=== PATIENT | male | born 1990 | race Two or more races ===

== ENCOUNTER 2018-08-15 21:53 | Emergency (ER) | payer OTHER ==
[~2018-08-15] VITALS: Ht 177.8 cm; Wt 70.3 kg
[2018-08-15 22:00] VITALS: BP 134/83
--- NOTE | 2018-08-15 22:00 | NUR ---
ED Nurse Note: BIBA FROM HOME C/O SEIZURE. PT STATES HAS ADORE OF SZ; COMPLIANT WITH MEDICATION REGIMEN. AO4. VSS. RIGHT SHOULDER DISLOCATION NOTED. PT RATES PAIN 10.
--- NOTE | 2018-08-15 22:01 | NUR ---
ED Nurse Note: IV ACCESS ESTABLISHED. BLOOD COLLECTED; SENT DOWN TO LAB. PT UNABLE TO PROVIDE URINE; REFUSES STRAIGHT CATH; ERMD NOTIFIED.
[2018-08-15] MEDS ORDERED: Morphine Sulfate 4mg/ml Inj (IV USE ONLY) IVP ONE (22:15)
[2018-08-15] MEDS ORDERED: Ketorolac 30mg Inj IV ONE (22:15)
[2018-08-15 22:25] LABS: ANION GAP 10 mmol/L (5-15); BLOOD UREA NITROGEN 17 mg/dL (7-18); CALCIUM 8.9 MG/DL (8.5-10.1); CARBON DIOXIDE 29 MMOL/L (21-32); CHLORIDE 101 MMOL/L (98-107); CREATININE 1.1 MG/DL (0.55-1.30); POTASSIUM 3.8 MMOL/L (3.5-5.1); SODIUM 140 MMOL/L (136-145)
[2018-08-15 22:29] LABS: ALANINE AMINOTRANSFERASE 37 U/L (12-78); ALBUMIN 4.5 G/DL (3.4-5.0); ALBUMIN/GLOBULIN RATIO 1.5 (1.0-2.7); ALKALINE PHOSPHATASE 47 U/L (46-116); ASPARTATE AMINO TRANSFERASE 22 U/L (15-37); BASOPHILS % (AUTO) 0.7 % (0.0-2.0); BILIRUBIN,TOTAL 0.4 MG/DL (0.2-1.0); EOSINOPHILS % (AUTO) 1.4 % (0.0-3.0); HEMATOCRIT 41.3 % (42.0-52.0); HEMOGLOBIN 14.2 G/DL (14.2-18.0); LYMPHOCYTES % (AUTO) 34.1 % (20.0-45.0); MEAN CORPUSCULAR VOLUME 82 FL (80-99); MONOCYTES % (AUTO) 7.2 % (1.0-10.0); NEUTROPHILS % (AUTO) 56.6 % (45.0-75.0); PLATELET COUNT 378 K/UL (150-450); RED BLOOD COUNT 5.01 M/UL (4.70-6.10); RED CELL DISTRIBUTION WIDTH 10.8 % (11.6-14.8)
--- NOTE | 2018-08-15 23:00 | NUR ---
ED Nurse Note: PATIENT UNABLE TO PROVIDE URINE SAMPLE. PER ERMD, URINE SAMPLE NO LONGER NEEDED.
[2018-08-15] MEDS ORDERED: Propofol 200mg/20ml IV ONE (23:03)
--- NOTE | 2018-08-15 23:20 | Emergency Room Report ---
History of Present Illness General Chief Complaint: Seizure Source: Patient Present Illness HPI 28-year-old male presents ED for evaluation. Brought in by EMS status post seizure. Had witnessed seizure at home. States he fell out of his chair. Denies hitting his head or LOC. Complaining with right shoulder pain. Throbbing, 10 out of 10, nonradiating. States he takes Keppra and Lamictal. States he's compliant with his medications. Denies alcohol or drug use. No other aggravating relieving factors. Denies any other associated symptoms Allergies: Coded Allergies: No Known Allergies (Unverified , 08/15/18) Patient History Past Medical History: none Past Surgical History: none Pertinent Family History: none Social History: Denies: smoking, alcohol use, drug use Immunizations: UTD Reviewed Nursing Documentation: PMH: Agreed; PSxH: Agreed Nursing Documentation-PMH Hx Seizures: Yes Review of Systems All Other Systems: negative except mentioned in HPI Physical Exam Vital Signs Date Time Temp Pulse Resp B/P (MAP) Pulse Ox O2 Delivery O2 Flow Rate FiO2 08/15/18 21:54 97.9 77 18 134/83 99 Room Air Sp02 EP Interpretation: reviewed, normal General Appearance: no apparent distress, alert, GCS 15, non-toxic Head: normocephalic, atraumatic Eyes: bilateral eye normal inspection, bilateral eye PERRL ENT: normal ENT inspection Neck: normal inspection Respiratory: chest non-tender, lungs clear, normal breath sounds, speaking full sentences Cardiovascular #1: regular rate, rhythm, no edema Gastrointestinal: normal inspection Rectal: deferred Genitourinary: no CVA tenderness Musculoskeletal: tender - R shoulder Neurologic: alert, oriented x3, responsive, motor strength/tone normal, sensory intact, speech normal Psychiatric: normal inspection Skin: normal inspection Lymphatic: normal inspection Procedures Splinting Splinting : Consent: Verbal Pre-Made Type: shoulder immobilizer Pre-Proc Neuro Vasc Exam: normal Post-Proc Neuro Vasc Exam: normal Patient Tolerated: Well Complications: None Joint Reduction Joint Reduction : Consent: Written Joint Reduction Site: shoulder (R) Procedural Sedation: Yes Reduction Attempts: One Pre-Procedure NV Exam: Yes Post-Procedure NV Exam: Yes Post Joint Reduction Film: joint reduced Patient Tolerated: Well Complications: None Procedural Sedation Consent: Written Pre-Sedation Assessment: Eval. Immed. Prior to Sed, Pre-proc Edu. done, Plan for Sedation Discuss Airway Assessment (Malampati): I Heart: normal Lungs: normal Abdomen: normal Extremities: normal Procedures/Plans: Closed Reduction Plan for Moderate Sedation: Propofol - 50mg ASA Score: I Start Time: 23:53 End Time: 23:55 Communication: No Apparent Limitation Mental Status: Awake Respiration: Unlabored Skin Condition: WNL Abdomen: WNL Nausea: NO Vomiting: NO Medical Decision Making Diagnostic Impression: Primary Impression: Seizure disorder Additional Impression: Shoulder dislocation Qualified Codes: S43.004A - Unspecified dislocation of right shoulder joint, initial encounter ER Course Hospital Course 28-year-old M presents to ED status post seizure. R shoulde deformity Differential diagnosis includes- breakthrough seizure, alcohol abuse, noncompliance with medication Clinical course Patient placed on stretcher. Initial history and physical I ordered labs, IV fluids, Keppra, lamictal, xrays R shoulder Labs-electrolytes okay, no leukocytosis, hemoglobin/hematocrit stable. Xray shows R shoulder dislocation Shoulder reduced using procedural sedation. Repeat x-ray shows shoulder in place. Shoulder immobilizer placed Discussed findings with patient. Patient is now more awake alert oriented. Vital stable. Friend at bedside to take patient home. Safe for discharge and close outpatient follow-up. States he'll follow-up with his PMD regarding the seizures. I'll provide orthopedic referral Diagnosis - seizure disorder, shoulder dislocation stable and discharged to home with Rx Motrin. Followup with PMD. Return to ED if symptoms recur or worsen Labs Test 08/15/18 22:00 White Blood Count 9.0 K/UL (4.8-10.8) Red Blood Count 5.01 M/UL (4.70-6.10) Hemoglobin 14.2 G/DL (14.2-18.0) Hematocrit 41.3 % (42.0-52.0) Mean Corpuscular Volume 82 FL (80-99) Mean Corpuscular Hemoglobin 28.3 PG (27.0-31.0) Mean Corpuscular Hemoglobin Concent 34.4 G/DL (32.0-36.0) Red Cell Distribution Width 10.8 % (11.6-14.8) Platelet Count 378 K/UL (150-450) Mean Platelet Volume 5.5 FL (6.5-10.1) Neutrophils (%) (Auto) 56.6 % (45.0-75.0) Lymphocytes (%) (Auto) 34.1 % (20.0-45.0) Monocytes (%) (Auto) 7.2 % (1.0-10.0) Eosinophils (%) (Auto) 1.4 % (0.0-3.0) Basophils (%) (Auto) 0.7 % (0.0-2.0) Sodium Level 140 MMOL/L (136-145) Potassium Level 3.8 MMOL/L (3.5-5.1) Chloride Level 101 MMOL/L (98-107) Carbon Dioxide Level 29 MMOL/L (21-32) Anion Gap 10 mmol/L (5-15) Blood Urea Nitrogen 17 mg/dL (7-18) Creatinine 1.1 MG/DL (0.55-1.30) Estimat Glomerular Filtration Rate > 60 mL/min (>60) Glucose Level 120 MG/DL (74-106) Calcium Level 8.9 MG/DL (8.5-10.1) Total Bilirubin 0.4 MG/DL (0.2-1.0) Aspartate Amino Transf (AST/SGOT) 22 U/L (15-37) Alanine Aminotransferase (ALT/SGPT) 37 U/L (12-78) Alkaline Phosphatase 47 U/L (46-116) Total Protein 7.6 G/DL (6.4-8.2) Albumin 4.5 G/DL (3.4-5.0) Globulin 3.1 g/dL Albumin/Globulin Ratio 1.5 (1.0-2.7) Acetaminophen Level < 2 MCG/ML (10-30) Serum Alcohol < 3 mg/dL Last Vital Signs Date Time Temp Pulse Resp B/P (MAP) Pulse Ox O2 Delivery O2 Flow Rate FiO2 08/15/18 21:54 97.9 77 18 134/83 99 Room Air Status: improved Disposition: HOME, SELF-CARE Condition: Stable Scripts Ibuprofen* (MOTRIN*) 600 Mg Tablet 600 MG ORAL Q8H PRN for For Pain, #30 TAB 0 Refills Prov: Ha House MD 08/16/18 Ha House MD Aug 15, 2018 23:20
--- NOTE | 2018-08-15 23:50 | NUR ---
ED Nurse Note: MODERATE SEDATION INITIATED BY MD ALFIE. SEE INTERVENTION.
[2018-08-16] MEDS ORDERED: Propofol 200mg/20ml IV ONE
[2018-08-16 00:55] VITALS: BP 144/95
[2018-08-16] MEDS ORDERED: IBUPROFEN600 MG ORAL (01:34)
[2018-08-16 01:45] VITALS: BP 134/72
--- NOTE | 2018-08-16 01:45 | NUR ---
ER DISCHARGE NOTE: Patient is cleared to be discharged per ERMD, pt is aox4, on room air, with stable vital signs. ACCOMPANIED BY FRIEND. pt was given dc and prescription instructions, pt was able to verbalize understanding, pt id band and iv site removed without complications. pt is able to ambulate with steady gait. pt took all belongings.
--- NOTE | 2018-08-16 15:17 | Diagnostic Imaging Report ---
Indication: Leg pain Technique: One view of the right shoulder Comparison: None Findings: Single frontal view of the right shoulder demonstrates abnormal inferior and medial displacement of the humeral head relative to the glenoid. Acromioclavicular joint is intact. Suspected Hill-Sachs impaction of the humeral head although evaluation is limited without orthogonal views. No appreciable acute fractures identified. Bone mineralization is within normal limits. Imaged portions of the right lung are clear. Impression: Anterior shoulder dislocation.
--- NOTE | 2018-08-16 15:19 | Diagnostic Imaging Report ---
Indication: Pain. Status post reduction of anterior shoulder dislocation. Technique: 2 views of the right shoulder Comparison: Earlier the same day Findings: Successful reduction of the previously described anterior shoulder dislocation. No acute fracture is appreciated although evaluation is limited as only 2 views were obtained. Portions of the right lung are clear. Acromioclavicular joint remains intact. Impression: Successful reduction of the previously seen anterior shoulder dislocation.
== END 2018-08-16 01:45 | disposition home or self-care (01) ==
LOC: EDBD 21:53 → EMR 22:08
DX: G40.909 Epilepsy, unspecified, not intractable, without status epilepticus (principal); S43.004A Unspecified dislocation of right shoulder joint, initial encounter; W07.XXXA Fall from chair, initial encounter; Y92.9 Unspecified place or not applicable
CPT/HCPCS: 23655; 36415; 73020; 80053; 80299; 85025; 96361; 96374; 96375; 99284; G0480; J1885; J2270; J2704; J7040; 80329